=== PATIENT | female | born 1980 | race Caucasian/White ===

== ENCOUNTER 2018-12-13 13:10 | Outpatient (CLI) | payer OTHER ==
[2018-12-13 15:17] VITALS: BP 126/75; PULSE 102; RESP 16; TEMP 97.8
--- NOTE | 2018-12-22 09:02 | P.MSEPDOC ---
Presenting Problems - Arrival Data Date of Arrival on Unit: 12/13/18 Time of Arrival on Unit: 13:05 Mode of Transport: Ambulatory - Complaint OB-Reason for Admission/Chief Complaint: Pain Comment: Pain score 2, right upper quadrant. Medical History - Information : 3 Para: 2 Term: 2 : 0 Abortions: Spontaneous or Elective: 0 Number of Living Children: 2 - Gestational Age Gestational Age by TUNDE (wks/days): 29 Weeks and 2 Days Review of Systems - Review of Systems Constitutional: No problems Breast: No problems ENT: No problems Cardiovascular: No problems Respiratory: No problems Gastrointestinal: No problems Genitourinary: No problems Musculoskeletal: No problems Neurological: No problems Skin: No problems Vital Signs - Temperature Temperature: 97.8 F Temperature Source: Oral - Pulse Pulse Oximetery Pulse Rate: 102 Pulse Assessment Method: Pulse Oximetry - Respirations Respiratory Rate: 16 O2 Sat by Pulse Oximetry: 99 - Blood Pressure Sitting Blood Pressure: 126/75 Blood Pressure Mean: 92 Blood Pressure Source: Automatic Cuff Medical Screen Scoring (Pre) - Cervical Exam Dilation: 1-3 cm = 1 Membranes: Intact - Uterine Contractions Frequency: N/A Duration: N/A Intensity: N/A - Maternal Vital Signs Maternal Temperature: N/A Maternal Blood Pressure: N/A Signs of Preeclampsia: N/A Maternal Respirations: N/A - Maternal Trauma Maternal Trauma: N/A - Assessment - Baby A Baseline FHR: 140 Heart Rate - NICHD Category: Category II (Indeterminate) = 3 NST: Reactive Position: N/A Station: N/A - Total Score - Baby A Total Score - Baby A: 4 - Total Score - Baby B Total Score - Baby B: 1 - Total Score - Baby C Total Score - Baby C: 1 - Level of Risk - Baby A Level of Risk - Baby A: Low (0-5) - Level of Risk - Baby B Level of Risk - Baby B: Low (0-5) - Level of Risk - Baby C Level of Risk - Baby C: Low (0-5) Physician Notification (Pre) - Physician Notified Physician Notified Date: 12/13/18 Physician Notified Time: 13:30 Physician/Practitioner Notifed:: Dr Maldonado New Order Received: Yes Medical Screen Scoring (Post) - Post Treatment Level of Risk Post Treatment Level of Risk - Baby A: Low (0-5) Physician Notification (Post) - Physician Notified Physician Notified Date: 12/13/18 Physician Notified Time: 13:30 Physician/Practitioner Notified:: Dr Maldonado New Order Received: Yes Disposition - Disposition OB Disposition: Discharge to home, Written follow up instructions reviewed Discharge Date: 12/13/18 Discharge Time: 13:45 I agree with the RN Medical Screening Exam: Yes Risk & Benefit of care provided described in d/c instruction: Yes Diagnosis: RELATED CONDITIONS, UNSP, UNSPECIFIED TRIMESTER
== END 2018-12-13 13:45 | disposition home or self-care (01) ==
LOC: FBPOP 13:10
PROVIDERS: ATTEND Obstetrics & Gynecology
DX: O26.90 Pregnancy related conditions, unspecified, unspecified trimester (principal); Z3A.29 29 weeks gestation of pregnancy
CPT/HCPCS: 59025; 99213

== ENCOUNTER 2018-12-18 21:02 | Observation (INO) | payer OTHER ==
[2018-12-18 21:41] LABS: Appearance,Urine Clear (Clear); Bilirubin,Urine Negative (Negative); Blood,Urine Negative (Negative); Color,Urine Colorless; Glucose,Urine (UA) Negative (Negative); Ketones,Urine Negative (Negative); Leukocyte Esterase,Urine Negative (Negative); Nitrite,Urine Negative (Negative); Protein,Urine Negative (Negative); Specific Gravity,Urine 1.002 (1.001-1.035); Urobilinogen,Urine <2.0 mg/dL (<2.0)
[2018-12-18 22:10] LABS: ALT 30 U/L (9-52); AST 30 U/L (14-36); African American GFR (CKD) >90 (>60 ml/min/1.73 sqM); Blood Urea Nitrogen 9 mg/dL (7-17); LDH 410 U/L (313-618); Non-African American GFR(CKD) >90 (>60 ml/min/1.73 sqM); Uric Acid 3.6 mg/dL (3.7-7.4)
[2018-12-18 22:16] LABS: Amphetamine Screen,Urine Not Detected (NotDetected); Barbiturate Screen,Urine Not Detected (NotDetected); Benzodiazepines Screen,Urine Detected (NotDetected); Cocaine Screen,Urine Not Detected (NotDetected); Methadone Screen, Urine Not Detected (NotDetected); Opiate Screen,Urine Not Detected (NotDetected); Oxycodone Screen, Urine Not Detected (NotDetected); Phencyclidine Screen,Urine Not Detected (NotDetected); Tricyclic Antidepressant,Urine Not Detected (NotDetected); Urn Cannabinoid Scrn Detected (NotDetected)
[2018-12-18 22:20] LABS: Creatinine,Urine Random 6.7 mg/dL
[2018-12-18] MEDS ORDERED: CALCIUM CARBONATE 500 MG CHEWABLE PO PRN (22:42)
[2018-12-18] MEDS ORDERED: ACETAMINOPHEN TAB 500 MG TAB PO PRN (22:42)
[2018-12-18] MEDS ORDERED: LACTATED RINGERS 1,000 ML IV SCH (22:45)
[2018-12-18 22:52] LABS: Basophils # (A) 0.1 k/uL (0-0.2); Basophils % (A) 1 %; Eosinophils # (A) 0.2 k/uL (0-0.7); Eosinophils % (A) 1 %; HCT 29.4 % (34.0-46.0); HGB 9.6 gm/dL (11.4-16.0); Lymphocytes # (A) 1.3 k/uL (1.0-4.8); Lymphocytes % (A) 11 %; MCH 28.4 pg (25.0-35.0); MCHC 32.7 g/dL (31.0-37.0); MCV 86.9 fL (80.0-100.0); Mean Platelet Volume 6.2; Monocytes # (A) 0.7 k/uL (0-1.0); Monocytes % (A) 6 %; Neutrophils # (A) 9.2 k/uL (1.3-7.7); Neutrophils % (A) 79 %; Platelet Count 325 k/uL (150-450); RBC 3.38 m/uL (3.80-5.40); RDW 13.7 % (11.5-15.5); WBC 11.7 k/uL (3.8-10.6)
[2018-12-18] MEDS ORDERED: CALCIUM CARBONATE 500 MG CHEWABLE PO ONE (23:24)
[2018-12-19] MEDS ORDERED: DIAZEPAM 5 MG/ML 2 ML INJ ONE (07:30)
[2018-12-19] MEDS ORDERED: CALCIUM CARBONATE 500 MG CHEWABLE PO ONE (07:30)
[2018-12-19 08:15] LABS: ALT 32 U/L (9-52); AST 28 U/L (14-36); African American GFR (CKD) >90 (>60 ml/min/1.73 sqM); Blood Urea Nitrogen 3 mg/dL (7-17); LDH 393 U/L (313-618); Non-African American GFR(CKD) >90 (>60 ml/min/1.73 sqM); Uric Acid 3.6 mg/dL (3.7-7.4)
[2018-12-19 08:22] LABS: Basophils % (A) 0 %; Eosinophils # (A) 0.1 k/uL (0-0.7); Eosinophils % (A) 1 %; HCT 30.5 % (34.0-46.0); HGB 9.6 gm/dL (11.4-16.0); Lymphocytes # (A) 1.3 k/uL (1.0-4.8); Lymphocytes % (A) 12 %; MCH 27.5 pg (25.0-35.0); MCHC 31.4 g/dL (31.0-37.0); MCV 87.3 fL (80.0-100.0); Mean Platelet Volume 6.4; Monocytes # (A) 0.6 k/uL (0-1.0); Monocytes % (A) 5 %; Neutrophils # (A) 8.3 k/uL (1.3-7.7); Neutrophils % (A) 79 %; Platelet Count 315 k/uL (150-450); RBC 3.49 m/uL (3.80-5.40); RDW 14.2 % (11.5-15.5); WBC 10.5 k/uL (3.8-10.6)
--- NOTE | 2018-12-19 08:53 | P.HPOB ---
History of Present Illness H&P Date: 12/19/18 Chief Complaint: IUP @ 29 weeks, withdrawl This is a 38-year-old 3 para 2001 that presented to labor and delivery last evening with complaints of rupture of membranes, and agitation. Patient's blood pressure was noted to be significantly elevated but patient was thrashing around and very agitated. Patient is currently incarcerated and states that she does 3 lines of heroin a day with last use 2 days ago. Upon arrival to triage blood pressure was managed with IV labetalol, preeclampsia labs were obtained and normal. Rupture of membranes was ruled out in addition. heart tones have been reassuring for gestational age. Patient is currently in a labor room, with an officer at the bedside. She is very agitated, and appears to be mentally unstable. She states she has been receiving care with 2 prior OB physicians and did see Dr. Sheriff about 1 week prior. Review of Systems Constitutional: Reports fatigue, Denies chills, Denies fever Cardiovascular: Denies leg edema Respiratory: Denies cough, Denies dyspnea Gastrointestinal: Denies nausea, Denies vomiting Genitourinary: Reports Past Medical History History of Any Multi-Drug Resistant Organisms: None Reported Smoking Status: Current every day smoker Medications and Allergies Home Medications Medication Instructions Recorded Confirmed Type Pnv No.95/Ferrous Fum/Folic AC 1 each PO DAILY 12/13/18 12/18/18 History [ Multivitamin Tablet] Allergies Allergy/AdvReac Type Severity Reaction Status Date / Time No Known Allergies Allergy Verified 12/18/18 21:18 Exam Osteopathic Statement: *. No significant issues noted on an osteopathic stru ctural exam other than those noted in the History and Physical/Consult. Vital Signs Temp Pulse Resp BP Pulse Ox 12/18/18 21:25 98.2 F 88 18 147/89 100 Intake and Output 12/18/18 12/19/18 12/19/18 22:59 06:59 14:59 Other: # Voids 3 Weight 69.853 kg In general this is a very agitated on stable female in no acute distress, she is writhing around the bed and limited exam is able to be performed. Her breathing does note to be nonlabored she is thrashing, heart tones were obtained earlier in the shift and reassuring for gestational age no contractions were noted, she as stated before had rupture of membranes ruled out with amnisure, and her cervix was closed thick and high per RN. Results Result Diagrams: 12/19/18 06:49 12/19/18 06:49 Abnormal Lab Results - Last 24 Hours (Table) 12/18/18 12/18/18 12/18/18 Range/Units 21:26 21:26 21:46 WBC (3.8-10.6) k/uL RBC (3.80-5.40) m/uL Hgb (11.4-16.0) gm/dL Hct (34.0-46.0) % Neutrophils # (1.3-7.7) k/uL BUN (7-17) mg/dL Creatinine (0.52-1.04) mg/dL Uric Acid 3.6 L (3.7-7.4) mg/dL U Random Total Protein 16 H (<12) mg/dL U Benzodiazepines Scrn Detected H (NotDetected) U Marijuana (THC) Screen Detected H (NotDetected) 12/18/18 12/19/18 12/19/18 Range/Units 21:46 06:49 06:49 WBC 11.7 H (3.8-10.6) k/uL RBC 3.38 L 3.49 L (3.80-5.40) m/uL Hgb 9.6 L 9.6 L (11.4-16.0) gm/dL Hct 29.4 L 30.5 L (34.0-46.0) % Neutrophils # 9.2 H 8.3 H (1.3-7.7) k/uL BUN 3 L (7-17) mg/dL Creatinine 0.51 L (0.52-1.04) mg/dL Uric Acid 3.6 L (3.7-7.4) mg/dL U Random Total Protein (<12) mg/dL U Benzodiazepines Scrn (NotDetected) U Marijuana (THC) Screen (NotDetected) Assessment and Plan (1) 29 weeks gestation of Current Visit: Yes Status: Acute Code(s): Z3A.29 - 29 WEEKS GESTATION OF SNOMED Code(s): 06394431 (2) Withdrawal from recreational drug Current Visit: Yes Status: Acute Code(s): F19.239 - OTH PSYCHOACTIVE SUBSTANCE DEPENDENCE WITH WITHDRAWAL, UNSP SNOMED Code(s): 471999277 Plan: Patient has been cleared obstetrically, her BP have been normal throughout the night. she had negative preeclampsia labs, and PTL/PPROM has been ruled out. I did consult medicine per withdrawl and they state they will consult but are unwilling to admit. I also consulted psych for management and am awaiting their input as well. will plan heart tomes q shift as far as obstetrical management.
[2018-12-19] MEDS ORDERED: LORazepam 2 MG/ML INJ IV STA (09:31)
--- NOTE | 2018-12-19 10:56 | P.CONS ---
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 Apparently the patient thought she was in labor as she was reportedly having contractions and thought that her water broke. The patient reports a past smoker history of heroin abuse reported that she does 3 lines of heroin daily. The patient denies any chest pain or shortness of breath, she does report to being anxious,and she is been agitated And combative on the obstetric floor. She also appears fidgety, she reported some nausea. The patient reports previously been on Suboxone therapy in the outpatient setting by Dr. Thompson but was discontinued off therapy secondary to violation of her pain contract for testing positive for methamphetamines. The patient has had a workup for PROM and preeclampsia per obstetric service that was negative. She was initially noted to be hypertensive and her blood pressure was managed with IV labetalol. Current Review of records indicates that her blood pressures relatively stable. UDS conducted in the ER was positive for THC and benzodiazepines but negative for cocaine opiate. Patient was given a loading dose of Valium Review of Systems Pertinent positives per HPI all other review of systems are negative Past Medical History History of Any Multi-Drug Resistant Organisms: None Reported Smoking Status: Current every day smoker Medications and Allergies Home Medications Medication Instructions Recorded Confirmed Type Pnv No.95/Ferrous Fum/Folic AC 1 each PO DAILY 12/13/18 12/18/18 History [ Multivitamin Tablet] Allergies Allergy/AdvReac Type Severity Reaction Status Date / Time No Known Allergies Allergy Verified 12/18/18 21:18 Physical Exam Vitals: Vital Signs Temp Pulse Resp BP Pulse Ox 12/18/18 21:25 98.2 F 88 18 147/89 100 Intake and Output 12/18/18 12/19/18 12/19/18 22:59 06:59 14:59 Other: # Voids 3 Weight 69.853 kg Constitutional: Mildly agitated, conversant, pleasant Eyes: Anicteric sclerae, moist conjunctiva, no lid-lag, PERRLA ENMT: NC/AT,Oropharynx clear, no erythema, exudates Neck:Supple, FROM, no masses, or JVD, No carotid bruits; No thyromegaly Lungs: Clear to auscultation, Clear to percussion, Normal respiratory effort, no accessory muscle use Cardiovascular: Heart regular in rate and rhythm, No murmurs, gallops, or rubs no peripheral edema Abdominal: Soft Nontender, distended due to gravid uterus, no guarding, no rebound or rigidity, Normoactive bowel sounds No hepatomegaly, No splenomegaly, No palpable mass No abdominal wall hernia noted Skin: Normal temperature, tone, texture, turgor, No induration No subcutaneous nodules, No rash, lesions, No ulcers Extremities:No digital cyanosis No clubbing, Pedal pulses intact and symmetrical Radial pulses intact and symmetrical Normal gait and station, No c da tenderness Psychiatric: Alert and oriented to person, place and time, anxious and agitated and fidgety Neuro: Muscles Strength 5/5 in all 4 extremities, Sensation to light touch grossly present throughout, Cranial nerves II-XII grossly intact. No focal sensory deficits Results CBC & Chem 7: 12/19/18 06:49 12/19/18 06:49 Labs: Abnormal Lab Results - Last 24 Hours (Table) 12/18/18 12/18/18 12/18/18 Range/Units 21:26 21:26 21:46 WBC (3.8-10.6) k/uL RBC (3.80-5.40) m/uL Hgb (11.4-16.0) gm/dL Hct (34.0-46.0) % Neutrophils # (1.3-7.7) k/uL BUN (7-17) mg/dL Creatinine (0.52-1.04) mg/dL Uric Acid 3.6 L (3.7-7.4) mg/dL U Random Total Protein 16 H (<12) mg/dL U Benzodiazepines Scrn Detected H (NotDetected) U Marijuana (THC) Screen Detected H (NotDetected) 12/18/18 12/19/18 12/19/18 Range/Units 21:46 06:49 06:49 WBC 11.7 H (3.8-10.6) k/uL RBC 3.38 L 3.49 L (3.80-5.40) m/uL Hgb 9.6 L 9.6 L (11.4-16.0) gm/dL Hct 29.4 L 30.5 L (34.0-46.0) % Neutrophils # 9.2 H 8.3 H (1.3-7.7) k/uL BUN 3 L (7-17) mg/dL Creatinine 0.51 L (0.52-1.04) mg/dL Uric Acid 3.6 L (3.7-7.4) mg/dL U Random Total Protein (<12) mg/dL U Benzodiazepines Scrn (NotDetected) U Marijuana (THC) Screen (NotDetected) Assessment and Plan Assessment: Agitation UDS positive for THC and benzodiazepines History of heroin abuse Elevated blood pressure in Plan: The patient is admitted to the primary obstretic service for evaluation of preeclampsia and rupture of membranes both of which have been negative and is seen in consult for medical management of possible opiate withdrawals. The patient UDS was negative for cocaine or opiates despite providing a history of doing signs of heroin daily with last use reported 2-3 days ago. The patient also stated that she has been taken off Suboxone therapy for violation of her pain contract due to methamphetamine drug use. The patient is agitated and complains of nausea/reflux, I would recommend symptomatic management and have given her dose of Ativan and Pepcid respectively. at this point I would proceed with plans for psychiatric consultation. The patient's vital signs relatively stable and within reasonable limits for safe discharge after being seen by psychiatry. The patient is medically stable from my point of view for discharge pending results of psychiatric consultation I appreciate this consult and the opportunity to be involved in this patient's care, for further questions please do not hesitate to contact the [facility] team.
[2018-12-19] MEDS ORDERED: ONDANSETRON 4 MG/2 ML VIAL IVP PRN (12:20)
[2018-12-19] MEDS ORDERED: HALOPERIDOL LACTATE 5 MG/ML 1 ML VIAL IM PRN (14:08)
--- NOTE | 2018-12-19 14:08 | P.CN ---
Psychiatric Consult - . Consult date: 12/19/18 Consult:: 12/19/18 13:56 IDENTIFYING DATA: This patient is a 38-year-old female with a history of polysubstance use who is 30 weeks and is currently incarcerated, and has 3 kids HISTORY OF PRESENT ILLNESS: The patient brought in from the assisted and presented to labor and delivery for complaints of ruptured membrane, agitation and elevated blood pressure. Patient admitted to doing approximately 3 lines of heroin a day for years and her last use was approximately 2-3 days ago. She states that she snorts heroin and does not injected. Patient claims that she has never withdrawn from opiates before however has been on Suboxone in the past. Patient's rupture of membranes had been ruled out on exam and patient received Ativan and Valium by primary team. Patient was seen today and was cuffed to the bed and appeared to be restless with a conservation officer beside her. Patient claims that she is having symptoms including feeling hot flashes and also feeling cold, feeling restless, anxious and having some nausea. Patient admitted to having piloerection. The patient denied any abdominal pain, diarrhea or cramps or pain. Patient stated that her mood was "bad" and admitted to depression in the past. She admits to poor sleep and also poor energy. At this time patient denies any suicidal or homical ideations, intent or plan. Patient denies any auditory, visual hallucinations and denies any paranoia or d elusions. Patient's UDS was positive for benzodiazepines and marijuana and patient admitted to using both claiming that she buys Xanax and Valium off the street and smokes proximately one joint of cannabis per day. She denies any alcohol use this time. PAST PSYCHIATRIC HISTORY: Patient denies ever being admitted to a psychiatric hospital, she admits to having history of depression. Patient denies any previous suicide attempts. She denies any outpatient psychiatric follow-up or being on any psychiatric medications in the past.. PAST MEDICAL HISTORY: denies. ALLERGIES: as per EMR. CHEMICAL DEPENDENCY HISTORY: as per HPI. 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 Patient is currently incarcerated serving a 10 day sentence at the assisted for retail fraud. Patient is has 3 kids and is 30 weeks .. MENTAL STATUS EXAM: General Appearance: Patient appears to be older than stated age is alert, irritable, and agitated at times patient has poor hygiene and poor grooming and multiple tattoos over her body. Behavior: Patient is restless and lying in bed. Patient appears to be agitated at times. Speech: Patient's speech is fluent and nonpressured. Mood/Affect: Patient reports their mood is "bad", affect is congruent and constricted Suicidality/Homicidality: Patient denies having any suicidal or homicidal ideation intent or plan. Perceptions: Patient denies any auditory or visual hallucinations. Though content/process: There is no evidence of any delusional thought content and thought process is linear and goal-directed. Memory and concentration: AOX3, grossly intact for the purposes of this session. Can spell "WORLD" backwards Judgment and insight: Poor/superficial IMPRESSIONS: Depressive disorder unspecified Opioid use disorder, currently in withdrawal Cannabis use disorder Benzodiazepine use disorder PLAN: -At this time patient does NOT meet criteria for inpatient psychiatric admission. -Would recommend the following medication changes/additions: Seroquel 50 mg daily +50 mg daily at bedtime for agitation/aggression. This medication can be discontinued after patient has withdrawn from opiates. Clonidine 0.1 mg every 8 hours when necessary for opiate withdrawal, holding parameters do not give if patient's BP is below 100/60. Haldol 3 mg every 8 hours when necessary for severe agitation. Would hold off on giving any more benzodiazepines at this time. -Psychiatry will sign off at this point
[2018-12-19] MEDS ORDERED: cloNIDine HCL 0.1 MG TAB PO PRN (14:09)
[2018-12-19] MEDS ORDERED: QUEtiapine 50 MG TAB PO SCH ×2 (14:10→21:00)
[2018-12-19 15:30] VITALS: BP 133/75; PULSE 77; RESP 16; TEMP 98.4
[2018-12-19] MEDS ORDERED: FAMOTIDINE 20 MG TAB PO SCH (21:00)
== END 2018-12-19 16:34 ==
LOC: FBPOP 21:02 → UNDOADMOB 22:44 → 4FBP 22:44 → 4SSUR 12-19 15:12 → UNDODISOB 12-19 16:34
PROVIDERS: ADMIT Obstetrics & Gynecology Obstetrics; ATTEND Obstetrics & Gynecology Obstetrics
DX: O99.323 Drug use complicating pregnancy, third trimester (principal); F19.939 Other psychoactive substance use, unspecified with withdrawal, unspecified; R82.5 Elevated urine levels of drugs, medicaments and biological substances; F13.10 Sedative, hypnotic or anxiolytic abuse, uncomplicated; Z3A.29 29 weeks gestation of pregnancy; O99.333 Smoking (tobacco) complicating pregnancy, third trimester; F17.200 Nicotine dependence, unspecified, uncomplicated; O26.893 Other specified pregnancy related conditions, third trimester; R03.0 Elevated blood-pressure reading, without diagnosis of hypertension; O09.523 Supervision of elderly multigravida, third trimester
CPT/HCPCS: 96374; 96375; 59025; 84112; 82570; 84156; 82565 ×2; 83615 ×2; 84450 ×2; 84460 ×2; 84520 ×2; 84550 ×2; 85025 ×2; 81003; 80306; G0463; G0378 ×2; J2060; J3360; J2405; 96360; 96361; 99215